=== PATIENT | male | born 1990 | race Caucasian/White ===

== ENCOUNTER 2016-08-21 14:44 | Emergency (ER) | payer OTHER ==
[2016-08-21 14:59] VITALS: RESP 16; O2SAT 99
[2016-08-21 16:16] VITALS: BP 114/76
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
[2016-08-21 16:55] VITALS: PULSE 74; TEMP 97.9
== END 2016-08-21 16:55 | disposition home or self-care (01) ==
DX: S59.901A Unspecified injury of right elbow, initial encounter (principal); V49.40XA Driver injured in collision with unspecified motor vehicles in traffic accident, initial encounter; Y92.410 Unspecified street and highway as the place of occurrence of the external cause; Y99.8 Other external cause status; Y93.89 Activity, other specified